=== PATIENT | female | born 1965 | race Caucasian/White ===

== ENCOUNTER → 2020-10-13 | Outpatient (CLI) | payer OTHER ==
[2020-10-13 09:22] LABS: ALANINE AMINOTRANSFERASE 25 U/L (12-78); ALBUMIN 3.7 g/dL (3.4-5.0); ANION GAP 4 mmol/L (5-15); CALCIUM 9.1 mg/dL (8.5-10.1); CHLORIDE 112 mmol/L (98-107); CHOLESTEROL, TOTAL 149 mg/dL (140-239); CREATININE 0.53 mg/dL (0.55-1.02)
[2020-10-13 09:24] LABS: ALKALINE PHOSPHATASE 64 U/L (45-117); BILIRUBIN,TOTAL 0.4 mg/dL (0.2-1.0); CHOL/HDL RATIO 2.9; HDL CHOL % 34 % (28-40); HDL CHOLESTEROL (DIRECT) 51 mg/dL (40-60); LDL CHOLESTEROL,CALCULATED 85 mg/dL (54-169); LDL/HDL RATIO 1.7 (0.5-3.0); TOTAL PROTEIN 6.9 g/dL (6.4-8.2); TRIGLYCERIDES 67 mg/dL (50-200); VLDL CHOLESTEROL 13 mg/dL (0-25)
== END | disposition home or self-care (01) ==
LOC: LAB 08:42
PROVIDERS: ATTEND Physician Assistant
DX: E11.9 Type 2 diabetes mellitus without complications (principal); E78.5 Hyperlipidemia, unspecified
CPT/HCPCS: 36415; 80053; 80061; 82043; 82570; 83036

== ENCOUNTER 2021-02-25 19:17 | Emergency (ER) | payer OTHER ==
[~2021-02-25] VITALS: Ht 162.6 cm; Wt 72.2 kg
[2021-02-25] MEDS ORDERED: LISI10TA19 PO (21:13)
[2021-02-25] MEDS ORDERED: METF10007 PO (21:13)
[2021-02-25] MEDS ORDERED: ATOR10TA9 PO (21:13)
--- NOTE | 2021-02-25 21:15 | NUR ---
PT HERE WITH C/O SORE THROAT SINCE THIS MORNING.
[2021-02-25] MEDS ORDERED: DEXAMETHASONE 4 MG TABLET PO ONE (21:30)
[2021-02-25] MEDS ORDERED: DEXAMETHASONE 4 MG TABLET ONE (21:33)
[2021-02-25 22:23] VITALS: BP 131/88
== END 2021-02-25 22:26 | disposition home or self-care (01) ==
LOC: ED 20:00
DX: J02.8 Acute pharyngitis due to other specified organisms (principal); Z20.822 Contact with and (suspected) exposure to COVID-19; B34.9 Viral infection, unspecified; Z90.710 Acquired absence of both cervix and uterus
CPT/HCPCS: 87081; 87880; 99283; U0003; U0005

== ENCOUNTER 2021-02-28 10:17 | Emergency (ER) | payer OTHER ==
[~2021-02-28] VITALS: Ht 162.6 cm; Wt 71.4 kg
[~2021-02-28 10:17] MED LIST: ATOR10TA9 PO; LISI10TA19 PO; METF10007 PO
[2021-02-28] MEDS ORDERED: ONDANSETRON ODT 4 MG PO ONE (11:30)
[2021-02-28] MEDS ORDERED: KETOROLAC 30 MG/1 ML IM ONE (11:30)
[2021-02-28] MEDS ORDERED: ONDANSETRON ODT 4 MG ONE (11:38)
[2021-02-28] MEDS ORDERED: KETOROLAC 30 MG/1 ML ONE (11:38)
[2021-02-28 12:24] VITALS: BP 127/80
== END 2021-02-28 12:26 | disposition home or self-care (01) ==
LOC: ED 10:51
DX: J06.9 Acute upper respiratory infection, unspecified (principal); Z20.822 Contact with and (suspected) exposure to COVID-19
CPT/HCPCS: 71045; 96372; 99284; J1885; U0003; U0005